=== PATIENT | male | born 1980 | race Caucasian/White ===

== ENCOUNTER 2016-12-01 13:03 | Emergency (ER) | payer MEDICAID, OTHER ==
[~2016-12-01] VITALS: Ht 190.5 cm; Wt 85.0 kg
[2016-12-01 13:06] VITALS: BP 163/90; PULSE 104; RESP 20; TEMP 97.9; O2SAT 96
[2016-12-01] MEDS ORDERED: ESCI10TA PO (13:22)
[2016-12-01] MEDS ORDERED: LISI10TA3 PO (13:22)
[2016-12-01] MEDS ORDERED: ADDE30XR PO (13:22)
[2016-12-01] MEDS ORDERED: WELLTAB39 PO (13:22)
[2016-12-01] MEDS ORDERED: TRAZ50TA12 PO (13:22)
--- NOTE | 2016-12-01 13:35 | PD ---
HPI Chief Complaint: Laceration/Skin Injury Time Seen by Provider: 13:35 Travel History International Travel<30 days: No Contact w/Intl Traveler<30days: No Traveled to known affect area: No History of Present Illness HPI 36-year-old male coming in with laceration to the base of the right proximal palmar index finger. Patient is been camping locally and was diagnosed and cutting string when he cut his finger by accident. Patient is left-handed. Patient has no loss of function, sensation, and bleeding is controlled with pressure. Patient is unsure of his last tetanus shot. Patient states the pain is minimal at this time. Patient is allergic to amoxicillin, but has taken Keflex in the past. [facility] Social History Alcohol Use: Yes Tobacco Use: No Substance Use: No Allergies-Medications (Allergen,Severity, Reaction): Coded Allergies: Amoxicillin (Verified Allergy, Unknown, 12/01/16) hives Reported Meds & Prescriptions Reported Meds & Active Scripts Active Keflex (Cephalexin) 500 Mg Cap 500 Mg PO Q8H Reported Trazodone (Trazodone HCl) 50 Mg Tab 50 Mg PO HS Escitalopram (Escitalopram Oxalate) 10 Mg Tab 10 Mg PO DAILY Wellbutrin Xl 24 HR (Bupropion HCl) 300 Mg Tab 300 Mg PO DAILY Adderall Xr 24 HR (Amphetamine/Dextroamphetamine) 30 Mg Cap 30 Mg PO DAILY Once daily in the morning. Lisinopril 10 Mg Tab 10 Mg PO DAILY Review of Systems Except as stated in HPI: all other systems reviewed are Neg General / Constitutional: No: Fever Eyes: No: Visual changes HENT: No: Headaches Cardiovascular: No: Chest Pain or Discomfort Respiratory: No: Shortness of Breath Gastrointestinal: No: Abdominal Pain Genitourinary: No: Dysuria Musculoskeletal: No: Pain Skin: No Rash Neurologic: No: Weakness Psychiatric: No: Depression Endocrine: No: Polydipsia Hematologic/Lymphatic: No: Easy Bruising Physical Exam Narrative GENERAL: Patient appears no acute distress. SKIN: Warm and dry. Patient is to have centimeter linear laceration to the proximal right index finger on the palmar surface. Sensation intact distal to the wound, capillary refill is brisk. HEAD: Atraumatic. Normocephalic. EYES: Pupils equal and round. No scleral icterus. No injection or drainage. ENT: No nasal bleeding or discharge. Mucous membranes pink and moist. NECK: Trachea midline. No JVD. CARDIOVASCULAR: Regular rate and rhythm. RESPIRATORY: No accessory muscle use. MUSCULOSKELETAL: Extremities without clubbing, cyanosis, or edema. No obvious deformities. Range of motion is full. Strength is intact. NEUROLOGICAL: Awake and alert. No obvious cranial nerve deficits. Motor grossly within normal limits. Five out of 5 muscle strength in the arms and legs. Normal speech. PSYCHIATRIC: Appropriate mood and affect; insight and judgment normal. Data Data Last Documented VS Vital Signs Date Time Temp Pulse Resp B/P Pulse Ox O2 Delivery O2 Flow Rate FiO2 12/01/16 13:06 97.9 104 20 163/90 96 Room Air Orders Tetanus/Diphtheria Tox Adult (Tetanus/Di (12/01/16 13:45) Lidocai-Epi 1%-1:100,000 Inj (Xylocaine- (12/01/16 13:45) Cephalexin (Keflex) (12/01/16 14:15) MDM Medical Decision Making Medical Screen Exam Complete: Yes Emergency Medical Condition: Yes Differential Diagnosis Laceration. Tendon injury. Nerve injury. Narrative Course Patient is medically stable at time of exam. Patient is given tetanus IM. Laceration was repaired please see procedure note. Patient is given first dose of Keflex 500 mg by mouth. Patient is discharged home with wound care instructions and prescription for Keflex 500 mg 3 times a day for 7 days. Patient follow with his primary care physician upon returning home. Patient will have his wound rechecked if any problems arise. Sutures should remain in for 10 days. Procedures Procedure Narrative LACERATION LOCATION: Right proximal index finger LENGTH: 2-1/2 cm NUMBER OF STITCHES/MILY: 6 simple interrupted REPAIR: The area of the laceration was prepped with Betadine and sterilely draped. Digital block of 4 mL was 1% lidocaine with epinephrine placed. The wound was copiously irrigated and explored without evidence of foreign body, tendon injury or neurovascular injury. The wound was closed using 5-0 Ethilon. This was a single layer repair. A sterile dressing was applied. The patient was advised to keep the dressing clean and dry. Patient tolerated the procedure well. Diagnosis Primary Impression: Laceration of right index finger without foreign body without damage to nail Qualified Code: S61.210A - Laceration of right index finger without foreign body without damage to nail, initial encounter Referrals: Primary Care Physician Patient Instructions: General Instructions Additional Instructions: Patient is given tetanus IM. Patient is given first dose of Keflex 500 mg by mouth. Patient is discharged home with wound care instructions and prescription for Keflex 500 mg 3 times a day for 7 days. Patient follow with his primary care physician upon returning home. Patient will have his wound rechecked if any problems arise. Sutures should remain in for 10 days. Med/Other Pt SpecificInfo: Prescription(s) given Scripts Cephalexin (Keflex)500 Mg [id number] Mg PO Q8H #21 CAP Prov:John Hamilton MD 12/01/16 Disposition: 01 DISCHARGE HOME Condition: Stable Chung Leslie Dec 01, 2016 13:35
[2016-12-01] MEDS ORDERED: TETANUS/DIPHTHERIA TOXOID ADULT 0.5 ML VIAL IM ONE (13:45)
[2016-12-01] MEDS ORDERED: LIDOCAINE 1%/EPINEPHrine 1:100,000 SOLN 20 ML VIAL INFIL ONE (13:45)
[2016-12-01] MEDS ORDERED: CEPH-460 PO (14:14)
[2016-12-01] MEDS ORDERED: CEPHALEXIN MONOHYDRATE 500 MG CAP PO ONE (14:15)
== END 2016-12-01 14:46 | disposition home or self-care (01) ==
LOC: NEPC 13:03
DX: S61.210A Laceration without foreign body of right index finger without damage to nail, initial encounter (principal); W45.8XXA Other foreign body or object entering through skin, initial encounter; Y92.833 Campsite as the place of occurrence of the external cause
CPT/HCPCS: 12001; 90471; 90714